=== PATIENT | female | born 1975 | race Caucasian/White ===

== ENCOUNTER 2022-09-25 09:43 | Day surgery (SDC) | payer BC ==
[2022-09-24 09:05] VITALS: BMI 25.0
[2022-09-25 12:39] VITALS: TEMP 97.8
[2022-09-25 12:40] VITALS: BP 100/64; PULSE 84; RESP 18
== END 2022-09-25 12:40 | disposition home or self-care (01) ==
LOC: FASU-ENDO 09:43
PROVIDERS: ATTEND Internal Medicine
PROC: 0DJD8ZZ Inspection of Lower Intestinal Tract, Via Natural or Artificial Opening Endoscopic (ICD-10-PCS; principal; 2022-09-25 11:41)
DX: Z12.11 Encounter for screening for malignant neoplasm of colon (principal); K63.3 Ulcer of intestine
CPT/HCPCS: 84703; 88305-TC